=== PATIENT | male | born 1935 | race Two or more races ===

== ENCOUNTER 2018-08-24 11:10 | Emergency (ER) | payer MEDICARE, MEDICAID ==
[~2018-08-24] VITALS: Ht 167.6 cm; Wt 67.1 kg
[~2018-08-24 11:10] MED LIST: AMLO1TAB84 PO; ASPI-650 PO; SAME MEDS
[2018-08-24 11:14] VITALS: Ht 167.6 cm; Wt 67.1 kg
[2018-08-24] MEDS ORDERED: LOSA100T15 PO (11:49)
[2018-08-24] MEDS ORDERED: CRES20 PO (11:49)
[2018-08-24] MEDS ORDERED: LEVOFLOXACIN 750 MG TABLET PO ONE (12:30)
--- NOTE | 2018-08-24 13:13 | ERD ---
ER Documentation Chief Complaint Chief Complaint dysuria x 4 days 10/14, recent diagnosis prostate ca, per daughter pt unawar HPI This is a 83-year-old male who is here with his family because he has had 4 days of dysuria. He states when he urinates he feels burning to his penis. He says there is no suprapubic pain, back pain, hematuria, fever. ROS All systems reviewed and are negative except as per history of present illness. Medications Home Meds Reported Medications Losartan Potassium* (Losartan Potassium*) 100 Mg Tablet, 100 MG PO DAILY, TAB 08/24/18 Rosuvastatin Calcium* (Crestor*) 20 Mg Tablet, 20 MG PO QHS, #30 TAB 08/24/18 Discontinued Reported Medications [Same Meds] No Conflict Check 04/30/12 Amlodipine-Olmesartan (Sj) 1 Tab Tablet, 1 TAB PO DAILY 04/24/12 Aspirin (Aspirin) 81 Mg Tablet, 1 TAB PO DAILY 04/24/12 Allergies Allergies: Coded Allergies: No Known Allergy (Unverified , 08/24/18) PMhx/Soc History of Surgery: No Anesthesia Reaction: No Hx Respiratory Disorders: No Hx Alcohol Use: No Hx Substance Use: No Hx Tobacco Use: No Smoking Status: Never smoker FmHx Family History: No coronary disease Physical Exam Vitals Vital Signs Date Temp Pulse Resp B/P (MAP) Pulse Ox O2 O2 Flow FiO2 Time Delivery Rate 08/24/18 98.6 71 18 163/82 98 11:14 (109) Physical Exam Const: No acute distress Head: Atraumatic Eyes: Normal Conjunctiva ENT: Normal External Ears, Nose and Mouth. Neck: Full range of motion. No meningismus. Resp: Clear to auscultation bilaterally Cardio: Regular rate and rhythm, no murmurs Abd: Soft, non tender, non distended. Normal bowel sounds Skin: No petechiae or rashes Back: No midline or flank tenderness Ext: No cyanosis, or edema Neur: Awake and alert Psych: Normal Mood and Affect Results 24 hrs Laboratory Tests Test 08/24/18 11:55 Urine Color YELLOW Urine Clarity SLIGHTLY CLOUDY Urine pH 5.0 Urine Specific Ch[place] 1.012 Urine Ketones NEGATIVE mg/dL Urine Nitrite POSITIVE mg/dL Urine Bilirubin NEGATIVE mg/dL Urine Urobilinogen NEGATIVE mg/dL Urine Leukocyte Esterase 1+ Mirta/ul Urine Microscopic RBC 3 /HPF Urine Microscopic WBC 51 /HPF Urine Bacteria FEW /HPF Urine Hemoglobin NEGATIVE mg/dL Urine Glucose NEGATIVE mg/dL Urine Total Protein NEGATIVE mg/dl Current Medications Medications Dose Sig/Praveen Start Time Status Last (Trade) Ordered Route PRN Stop Time Admin Dose Reason Admin 750 mg ONCE ONCE 08/24/18 DC 08/24/18 Levofloxacin PO 12:30 12:40 (Levaquin) 08/24/18 12:37 Procedures/MDM Patient has a urinary tract infection. We will send off a urine culture and give him 750 mg of Levaquin x1 here and discharged home with Macrobid Departure Diagnosis: Primary Impression: UTI (urinary tract infection) Urinary tract infection type: acute cystitis Hematuria presence: without hematuria Qualified Codes: N30.00 - Acute cystitis without hematuria Condition: Stable KRIS REYNOSO DO Aug 24, 2018 13:13
[2018-08-24] MEDS ORDERED: NITR-58 PO (13:14)
[2018-08-24 13:21] VITALS: BP 118/63; PULSE 86; RESP 18
== END 2018-08-24 13:44 | disposition home or self-care (01) ==
LOC: E/R 11:10
DX: N30.00 Acute cystitis without hematuria (principal)
CPT/HCPCS: 81001; 87086; 99283